=== PATIENT | female | born 1995 | race Caucasian/White ===

== ENCOUNTER → 2019-04-28 14:22 | Outpatient (BNVA) | payer BC, OTHER, SELFPAY | PROVIDERS: Visit Provider Nurse Practitioner Women's Health | DX: Z30.430 Encounter for insertion of intrauterine contraceptive device (principal) | CPT/HCPCS: 81025 ==

== ENCOUNTER → 2019-08-11 15:21 | Outpatient (BNVA) | payer BC, OTHER, SELFPAY | PROVIDERS: Visit Provider Nurse Practitioner Women's Health | DX: R10.2 Pelvic and perineal pain (principal); N76.0 Acute vaginitis; Z30.431 Encounter for routine checking of intrauterine contraceptive device | CPT/HCPCS: 87491; 87591; 87661 ==

== ENCOUNTER → 2019-11-27 15:44 | Outpatient (BNVA) | payer OTHER, SELFPAY | PROVIDERS: Visit Provider Nurse Practitioner Women's Health | DX: Z20.2 Contact with and (suspected) exposure to infections with a predominantly sexual mode of transmission (principal) | CPT/HCPCS: 86592; 86803; 87340; 87806 ==

== ENCOUNTER 2020-09-09 14:44 | Outpatient (CLI) | payer OTHER, SELFPAY ==
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
== END 2020-09-09 14:45 | disposition home or self-care (01) ==
PROVIDERS: PCP Nurse Practitioner Family; Visit Provider Nurse Practitioner
DX: M54.2 Cervicalgia (principal); M25.512 Pain in left shoulder; V89.2XXA Person injured in unspecified motor-vehicle accident, traffic, initial encounter
CPT/HCPCS: 72040; 73030

== ENCOUNTER → 2020-11-30 09:06 | Outpatient (BNVA) | payer OTHER, SELFPAY | PROVIDERS: PCP Nurse Practitioner Family; Visit Provider Nurse Practitioner Women's Health | DX: Z01.419 Encounter for gynecological examination (general) (routine) without abnormal findings (principal); Z20.2 Contact with and (suspected) exposure to infections with a predominantly sexual mode of transmission | CPT/HCPCS: 88175 ==

== ENCOUNTER 2022-12-28 08:50 | Outpatient (CLI) | payer OTHER, SELFPAY ==
--- NOTE | 2022-12-28 08:55 | MR_ITS ---
WS: [id number] MRI BRAIN WITH AND WITHOUT CONTRAST HISTORY: MIGRAINE,UNSP,NOT INTRACTABLE W/O STATUS MIGRAINOSUS COMPARISON: None available. TECHNIQUE: Multiplanar imaging performed through the brain with MultiHance 20 ml's IV. No acute infarcts are seen. Waldrop-white matter differentiation is well preserved. No susceptibility artifacts or prior lacunar infarcts. Ventricles and extra-axial spaces are normal. Clivus and pituitary gland are normal. Visualized posterior fossa and brainstem are also normal. Postcontrast images are negative for masses or vascular malformations. Dural venous sinuses are normal. Paranasal sinuses: Very minimal mucoperiosteal thickening in the RIGHT frontal sinus and frontal ethm oid recess. Mastoid air cells: Normal. Calvarium and scalp: Normal. IMPRESSION: 1. Normal MRI brain with contrast. 2. No mass or signal abnormality at the cerebellopontine angles along the internal auditory canals.
--- NOTE | 2022-12-28 08:55 | MR_ITS ---
WS: [id number] MRI NECK WITH AND WITHOUT CONTRAST. COMPARISON: None Multiplanar, multisequence imaging is performed with and without contrast. MultiHance 20 mL IV. No masses or abnormal enhancement noted along the neck or at the angle of the jaw. The mandibular con dyles are properly positioned with normal signal. No erosions at the mandibular condyles. No mass at the cerebellopontine angles. The visualized tongue base is negative. Parotid and submandibular glands are are normal. No cervical chain adenopathy. Parapharyngeal fat is normal. Normal flow voids in the visualized carotid and vertebral arteries. LEFT vertebral artery is dominant . IMPRESSION: 1. No signal abnormality identified within the region of the mandible or condyles. 2. No cervical chain adenopathy. 3. No neck mass or signal abnormality.
[2022-12-28] MEDS: gadobenate dimeglumine 20 mL vial IV (10:13)
== END 2022-12-28 08:51 | disposition home or self-care (01) ==
LOC: RAD 08:51
PROVIDERS: PCP Nurse Practitioner Family; Visit Provider Otolaryngology
DX: G43.909 Migraine, unspecified, not intractable, without status migrainosus (principal)
CPT/HCPCS: 70543; 70553; A9577

== ENCOUNTER 2025-02-16 07:01 | Outpatient (CLI) | payer BC, SELFPAY ==
[2025-02-16 07:49] LABS: Hematocrit 43.2 % (36-47); Hemoglobin 14.40 g/dL (11.27-16.99); Mean Corpuscular HGB Conc 33.3 g/dL (30-55); Mean Corpuscular Hemoglobin 30.5 pg (27-33); Mean Corpuscular Volume 91.5 fl (85-98); Nucleated Red Blood Cells % 0 %; Platelet Count 324 10^3/cmm (157-399); Red Blood Count 4.72 10^6/uL (3.85-5.65); White Blood Count 9.97 10^3/uL (3.29-11.43)
[2025-02-16 08:21] LABS: Alanine Aminotransferase 22 U/L (0-33); Albumin Level 4.6 g/dL (3.5-5.2); Alkaline Phosphatase 73 U/L (35-105); Anion Gap 13.1 (5-19); Aspartate Amino Transferase 22 U/L (0-32); Blood Urea Nitrogen 12 mg/dL (6-20); Calcium 9.1 mg/dL (8.5-10.5); Carbon Dioxide 26 mmol/L (22-29); Chloride 103 mmol/L (98-107); Cholesterol 185 mg/dL (0-200); Free T4 Free Thyroxine 1.15 ng/dL (0.82-1.77); Globulin 2.9 g/dL (1.3-4.6); Glucose 77 mg/dL (65-115); HDL Cholesterol 47 mg/dL (60-100); Osmolality Calculated 285 mOsm/kg (285-295); Potassium 4.1 mmol/L (3.5-5.1); Sodium 138 mmol/L (136-145); Thyroid Stimulating Hormone 1.45 uIU/mL (0.27-4.20); Total Protein 7.5 g/dL (6.6-8.7); Triglycerides 74 mg/dL (0-150)
[2025-02-16 08:44] LABS: Follicle Stimulating Hormone 3.8 mIU/mL
== END 2025-02-16 07:02 | disposition home or self-care (01) ==
PROVIDERS: PCP Nurse Practitioner Family; Visit Provider Nurse Practitioner Family
DX: Z13.29 Encounter for screening for other suspected endocrine disorder (principal); G43.909 Migraine, unspecified, not intractable, without status migrainosus; N92.6 Irregular menstruation, unspecified
CPT/HCPCS: 36415; 80053; 80061; 83001; 83002; 84439; 84443; 85025